=== PATIENT | female | born 2000 | race Caucasian/White ===

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

== ENCOUNTER 2020-10-19 20:41 | Emergency (ER) | payer MEDICAID ==
[~2020-10-19] VITALS: Ht 165.1 cm; Wt 82.0 kg
--- NOTE | 2020-10-19 21:17 | NUR ---
PT. TO ROOM FROM LOBBY AT THIS TIME.
--- NOTE | 2020-10-19 21:50 | NUR ---
PT. TO ED WITH C/O LOWER BACK PAIN. STATES HAS CHRONIC BACK PAIN R/T SCOLIOSIS AND ARTHRITIS IN HER BACK. PT. STATES YESTERDAY [place] [facility] [place] [facility] AND TONIGHT FELT A POP IN HER BACK WHEN SHE WENT TO STAND UP FROM A CHAIR. PT. STATES RIGHT LEG NUMBNESS/TINGING AT THAT TIME WELL. CMS INTACT ON EXAM. PT. ABLE TO MOVE LOWER EXTERMITIES. PT. DENIES ANY INCONTINENCE.
--- NOTE | 2020-10-19 21:53 | NUR ---
DR. SANTAMARIA IN TO EVAL PT. AND DISCUSS POC.
[2020-10-19] MEDS ORDERED: DIAZEPAM 5 MG TABLET PO ONE (22:00)
[2020-10-19] MEDS ORDERED: ACETAMINOPHEN 325 MG TABLET PO ONE (22:00)
[2020-10-19] MEDS ORDERED: DIAZEPAM 5 MG TABLET ONE (22:06)
[2020-10-19] MEDS ORDERED: ACETAMINOPHEN 325 MG TABLET ONE (22:06)
--- NOTE | 2020-10-19 22:13 | NUR ---
PT. MEDICATED PER MAR FOR 10/10 BACK PAIN. DENIES OTHER NEEDS AT THIS TIME. FRIEND AT FOR SUPPORT.
--- NOTE | 2020-10-19 22:59 | NUR ---
PT. REPORTS PAIN REMAINS 12/23. WILL ASK MD FOR RECHECK.
[2020-10-19] MEDS ORDERED: HYDROmorphone 1 MG/ML, 1ML INJ ONE (23:26)
[2020-10-19] MEDS ORDERED: HYDROmorphone 1 MG/ML, 1ML INJ IM ONE (23:30)
[2020-10-20 00:08] VITALS: BP 97/51
--- NOTE | 2020-10-20 00:09 | NUR ---
BREAK RN: PT VERBALIZED UNDERSTANDING OF DISCHARGE INSTRUCTION. VSS. PT AMBUALTED OUT OF ER WITH A STEADY GAIT
== END 2020-10-20 00:12 | disposition home or self-care (01) ==
LOC: ED 23:17
DX: S39.012A Strain of muscle, fascia and tendon of lower back, initial encounter (principal); M19.90 Unspecified osteoarthritis, unspecified site; F17.200 Nicotine dependence, unspecified, uncomplicated; X58.XXXA Exposure to other specified factors, initial encounter; Y93.89 Activity, other specified; Y92.89 Other specified places as the place of occurrence of the external cause; Y99.8 Other external cause status
CPT/HCPCS: 96372; 99283; J1170